=== PATIENT | female | born 1975 | race Caucasian/White ===

== ENCOUNTER → 2018-01-27 12:49 | Outpatient (CLI) | payer OTHER, SELFPAY ==
--- NOTE | 2018-01-27 12:55 | US_ITS ---
US extremity LT limited CLINICAL INDICATION: ITS.REASON: INGUINAL LYPHADENOPATHY ORDERING PHYSICIAN: SARAN Petty PATIENT AGE: 42 years Comparison: None FINDINGS: Ultrasound performed of the left groin is somewhat limited. No cystic abnormalities are evident. A questionable small lymph node in the left groin and [address] may be of more thorough evaluation if clinically warranted. IMPRESSION: Limited exam with possible small lymph node in the left inguinal area. Consider CT for further evaluation if there is a palpable abnormality in this region
== END ==
PROVIDERS: PCP Family Medicine; Visit Provider Physician Assistant
DX: R59.0 Localized enlarged lymph nodes (principal)
CPT/HCPCS: 76882

== ENCOUNTER → 2019-06-23 09:54 | Outpatient (CLI) | payer OTHER, SELFPAY | PROVIDERS: PCP Family Medicine; Visit Provider Family Medicine | DX: R00.0 Tachycardia, unspecified (principal) | CPT/HCPCS: 93225; 93226 ==

== ENCOUNTER → 2019-07-03 08:25 | Outpatient (CLI) | payer OTHER, SELFPAY ==
--- NOTE | 2019-07-03 08:32 | US_ITS ---
PROCEDURE: US BREAST LT COMPLETE CLINICAL INDICATION: LT BREAST MASS Palpable abnormality left breast COMPARISON: No exams were available for comparison FINDINGS: Palpable abnormality in left breast corresponds to a benign-appearing 2.8 x 1.3 cm cyst at 9 o'clock near the nipple. Other smaller cysts are present in the left breast. There is a 7 mm cyst at 12 o'clock and a 5 mm cyst at 11 o'clock. Small nodes are present in the axilla. IMPRESSION: Palpable abnormality left breast corresponds to a cyst. BI-RADS category 2 benign. Since the palpable abnormality corresponded to a cyst, a diagnostic mammogram was not performed. However, would recommend bilateral screening mammogram for completeness. Dictated by: Ravinder Miner MD 07/03/2019 14:53 Electronically signed by Ravinder Miner MD in [place] 07/03/2019 14:53
== END ==
PROVIDERS: PCP Family Medicine; Visit Provider Family Medicine
DX: N60.12 Diffuse cystic mastopathy of left breast (principal)
CPT/HCPCS: 76641

== ENCOUNTER → 2019-07-15 08:23 | Outpatient (CLI) | payer OTHER, SELFPAY ==
--- NOTE | 2019-07-15 08:26 | MM_ITS ---
PROCEDURE: MM DIG SCREENING MAMM BI W/CAD Digital Breast Tomosynthesis Included CLINICAL INDICATION: SCREENING There is no personal or family history of breast cancer. COMPARISON: This is a baseline screening exam TECHNIQUE: Standard CC and MLO images and 3D Tomosynthesis was obtained. R2 CAD reviewed. FINDINGS: Prominent diffuse somewhat heterogenic fibroglandular densities are seen throughout both breasts and the findings are bilateral and symmetrical. Efrain images are most helpful in this type of dense breast parenchyma and there is no suspicious lesions seen. There are no suspicious microcalcifications. IMPRESSION: Diffusely dense parenchymal pattern with no suspicious lesions seen BI-RAD Category: 1 Negative FOLLOW-UP: 1YR 1 Year Follow-up (A letter has been sent to the patient regarding results of the study.) Dictated by: Dr. Oziel Palacios MD 07/19/2019 19:[address] Oziel Palacios MD in [place] 07/19/2019 19:24
== END ==
PROVIDERS: PCP Family Medicine; Visit Provider Family Medicine
DX: Z12.31 Encounter for screening mammogram for malignant neoplasm of breast (principal)
CPT/HCPCS: 77063; 77067

== ENCOUNTER 2023-04-18 13:11 | Outpatient (CLI) | payer BC, SELFPAY ==
--- NOTE | 2023-04-18 13:13 | MM_ITS ---
PROCEDURE INFORMATION: Exam: MG Bilateral Screening 3D Mammography Exam date and time: 04/18/2023 1:17 PM Age: 47 years old Clinical indication: Screening examination TECHNIQUE: Imaging protocol: Bilateral Screening tomosynthesis and 2D mammography including computer-aided detection (CAD) when performed. COMPARISON: 1. MG MM DIG SCREENING MAMM BI W/CAD 07/15/2019 8:42 AM 2. US BREAST LT COMPLETE 07/03/2019 8:22 AM FINDINGS: MAMMOGRAPHY: Breast composition: The breasts are extremely dense, which lowers the sensitivity of mammography. Mass: No new or suspicious masses Architectural distortion: None. Calcifications: No suspicious calcifications. Asymmetric density: None. Skin thickening: None. Axillary adenopathy: None. IMPRESSION: No mammographic evidence of malignancy. Annual screening is recommended unless otherwise clinically indicated. ASSESSMENT: BI-RADS Category 1: Negative
== END 2023-04-18 23:59 ==
LOC: RAD 13:11
PROVIDERS: PCP Family Medicine; Visit Provider Family Medicine
DX: Z12.31 Encounter for screening mammogram for malignant neoplasm of breast (principal)
CPT/HCPCS: 77063; 77067